=== PATIENT | female | born 1985 | race Caucasian/White ===

== ENCOUNTER 2021-11-18 16:30 | Emergency (ER) | payer MEDICAID ==
[~2021-11-18] VITALS: Ht 157.5 cm; Wt 140.0 kg
[2021-11-18] MEDS ORDERED: ONDANSETRON 4MG ODT PO STA (16:46)
[2021-11-18] MEDS ORDERED: ACETAMINOPHEN 325MG TABLET PO STA (16:46)
[2021-11-18 17:23] LABS: BASOPHILS % 0.8 % (0.0-2.0); EOSINOPHILS % 1.5 % (0.0-5.0); HEMATOCRIT. 42.5 % (36.0-48.0); LYMPHOCYTES % 23.8 % (20.0-50.0); MEAN CORPUSCULAR HEMOGLOBIN 26.3 pg (28.0-32.0); MEAN CORPUSCULAR VOLUME 79.8 fL (81.0-99.0); MONOCYTES % 7.7 % (2.0-8.0); NEUTROPHILS % 66.2 % (40.0-76.0); PLATELET 393 x1000/uL (130-400); RED BLOOD CELL COUNT 5.33 mill/uL (4.2-5.4); RED CELL DISTRIBUTION WIDTH 16.3 % (11.6-14.6)
[2021-11-18 17:28] LABS: CHLORIDE 104 mEq/L (98-107)
[2021-11-18 17:37] LABS: HCG SCREEN NEGATIVE
[2021-11-18 18:14] LABS: CLARITY URINE CLEAR (CLEAR); COLOR URINE YELLOW (YELLOW); KETONES URINE NEGATIVE (NEGATIVE); LEUKOCYTE ESTERASE URINE NEGATIVE (NEGATIVE); NITRITE URINE NEGATIVE (NEGATIVE); OCCULT BLOOD URINE NEGATIVE (NEGATIVE); PH URINE 7.5 (4.5-8.0); PROTEIN URINE NEGATIVE (NEGATIVE); SPECIFIC GRAVITY URINE 1.023 (1.005-1.030); UROBILINOGEN URINE 0.2 E.U./dL (0.2-1.0)
[2021-11-18] MEDS ORDERED: TOPUD PO (18:43)
[2021-11-18] MEDS ORDERED: POLY17PO3 PO (18:43)
[2021-11-18] MEDS ORDERED: ONDA4TAB5 PO (18:43)
[2021-11-18 19:16] VITALS: BP 126/77
== END 2021-11-18 19:17 | disposition home or self-care (01) ==
LOC: ER 16:30
DX: R10.31 Right lower quadrant pain (principal); Z98.890 Other specified postprocedural states
CPT/HCPCS: 36415; 74176; 80053; 81003; 81025; 84703; 85025; 99284